=== PATIENT | female | born 1960 | race African-American/Black ===

== ENCOUNTER 2020-02-24 06:56 | Emergency (ER) | payer OTHER ==
--- NOTE | 2020-02-24 07:13 | PDOC ---
History of Present Illness - General Chief Complaint: Chest Pain Stated Complaint: CHEST PAIN - History of Present Illness Initial Comments: 02/24/20 07:23 59 F with h/o HTN presenting to ED with 1 month of intermittent chest pain. Pt describes midsternal pain that is worse with certain positions or movements. Denies any SOB. Denies any exertional or pleuritic component to the pain. Denies any new leg swelling. Denies F/C/cough. No recent travel/immobilization. Past History - Medical History Allergies/Adverse Reactions: Allergies Allergy/AdvReac Type Severity Reaction Status Date / Time No Known Allergies Allergy Verified 02/24/20 07:04 Home Medications: Ambulatory Orders Amlodipine Besylate 10 mg PO DAILY 11/07/15 Losartan Potassium 50 mg PO DAILY 11/07/15 Anemia: No (LONG AGO) Asthma: No Cancer: No Cardiac Disorders: No CVA: No COPD: No CHF: No Dementia: No Diabetes: No GI Disorders: No Disorders: No HTN: Yes Hypercholesterolemia: No Liver Disease: No Seizures: No Thyroid Disease: No - Surgical History Abdominal Surgery: No Appendectomy: No Cardiac Surgery: No Cholecystectomy: No Lung Surgery: No Neurologic Surgery: No Orthopedic Surgery: Yes (KNEE ARTHROSCOPY) - Psycho-Social/Smoking History Smoking Status: No Smoking History: Never smoked Have you smoked in the past 12 months: No Number of Cigarettes Smoked Daily: 0 Review of Systems - Review of Systems Comments:: 02/24/20 07:25 "GENERAL/CONSTITUTIONAL: No fever or chills. No weakness. HEAD, EYES, EARS, NOSE AND THROAT: No change in vision. No ear pain or discharge. No sore throat. CARDIOVASCULAR: + chest pain, no shortness of breath, no loss of consciousness RESPIRATORY: No cough, wheezing, or hemoptysis. GASTROINTESTINAL: No nausea, vomiting, diarrhea or constipation. GENITOURINARY: No dysuria, frequency, or change in urination. MUSCULOSKELETAL: No joint or muscle swelling or pain. No neck or back pain. SKIN: No rash NEUROLOGIC: No vertigo, no change in strength/sensation. ENDOCRINE: No increased thirst. No abnormal weight change. HEMATOLOGIC/LYMPHATIC: No anemia, easy bleeding, or history of blood clots. ALLERGIC/IMMUNOLOGIC: No hives or skin allergy. *Physical Exam - Physical Exam 02/24/20 07:25 "GENERAL: Awake, alert, and fully oriented, in no acute distress. HEAD: No signs of trauma EYES: PERRLA, EOMI, sclera anicteric, conjunctiva clear ENT: Auricles normal inspection, hearing grossly normal, nares patent, oroph arynx clear without exudates. Moist mucosa NECK: Nontender, no stepoffs, Normal ROM, supple, no lymphadenopathy, JVD, or masses LUNGS: Breath sounds equal, clear to auscultation bilaterally. No wheezes, and no crackles HEART: Regular rate and rhythm, normal S1 and S2, no murmurs, rubs or gallops ABDOMEN: Soft, nontender, normoactive bowel sounds. No guarding, no rebound. No masses EXTREMITIES: Normal range of motion, no edema. No clubbing or cyanosis. No cords, erythema, or tenderness NEUROLOGICAL: Cranial nerves II through XII intact. 5/5 strength and sensation in all extremities, Normal speech, normal gait, normal cerebellar function SKIN: Warm, Dry, normal turgor, no rashes or lesions noted. Heart Score/ECG Review - History History: Slightly suspicious - Electrocardiogram EKG: Non specific repolarization disturbance - Age Age: 45-65 - Risk Factors Risk Factors Heart Score: Yes Hx Hypertension Based on the list above the patient has:: 1-2 risk factors - Troponin Troponin: </= normal limit - Score Heart Score - Total: 3 - ECG Impressions Comment:: 02/24/20 07:25 NSR, no ИВАН/STDs, T wave flattening in V1-V2, intervals wnl, rate 61 ED Treatment Course - LABORATORY CBC & Chemistry Diagram: 02/24/20 08:00 02/24/20 08:00 Medical Decision Making - Medical Decision Making 02/24/20 07:26 59 F with atypical chest pain. Suspect msk in etiology as it is worse with positional changes. EKG with mild T wave flattening in V1-V2. Previous EKG in 2016 had TWI in these leads. No evidence of pericarditis. Pt with no PE risk factors, normal vitals. - Labs, trop - CXR 02/24/20 08:46 Labs wnl CXR clear Pt is well appearing, with normal vitals. Clinically stable for DC at this time. I discussed the physical exam findings, ancillary test results and final diagnoses with the patient. I answered all of the patient's questions. The shelley ent was satisfied with the care received and felt comfortable with the discharge plan and treatment plan. The patient agrees to follow up with the primary care physician within 24-72 hours. Please note this patient was evaluated during the COVID-19 crisis with the presidential [place] Act Declaration and the [place] governor executive order number [id number]. He/she was evaluated and clinical decisions were made relative to healthcare system resources as well as clinical picture during a pandemic crisis situation. Discharge - Discharge Information Problems reviewed: Yes Clinical Impression/Diagnosis: Chest pain Disposition: HOME - Follow up/Referral - Patient Discharge Instructions Patient Printed Discharge Instructions: DI for Chest Pain Additional Instructions: Your X ray and bloodwork were normal today. However, this does not rule out all serious medical conditions. Call your primary doctor to discuss your visit today. Follow up with your sound assistant for your stress test and echocardiogram. If you experience worsening pain, shortness of breath, or any other concerning symptoms, return to the ER immediately. - Post Discharge Activity
[2020-02-24 07:14] VITALS: BP 157/89; PULSE 75; TEMP 98
[2020-02-24 08:16] LABS: BASO % 1.1 % (0-2.0); EOS % 3.2 % (0-4.5); HEMATOCRIT 37.6 % (32.4-45.2); HEMOGLOBIN 12.2 GM/dl (10.7-15.3); LYMPH % 44.5 % (8-40); MCH 23.2 pg (25.7-33.7); MCHC 32.5 g/dl (32.0-36.0); MEAN CELL VOLUME 71.5 fl (80-96); MEAN PLT VOLUME 8.8 fl (7.5-11.1); MONO % 7.2 % (3.8-10.2); PLATELET COUNT 285 K/MM3 (134-434); RBC 5.26 M/mm3 (3.60-5.2); WHITE BLOOD COUNT 4.4 K/mm3 (4.0-10.8)
[2020-02-24 08:20] LABS: ADD RBC MORPHOLOGY YES
[2020-02-24 08:29] LABS: ALBUMIN 4.6 g/dl (3.4-5.0); BILIRUBIN,TOTAL 0.6 mg/dl (0.2-1); CALCIUM 9.6 mg/dl (8.5-10); CREATININE 0.9 mg/dl (0.55-1.3); POTASSIUM 4.1 mmol/L (3.5-5.1); TOT PROT 8.6 g/dl (6.4-8.2)
--- NOTE | 2020-02-24 09:30 | EKG ---
Test Reason : Blood Pressure : / mmHG Vent. Rate : 061 BPM Atrial Rate : 061 BPM P-R Int : 168 ms QRS Dur : 082 ms QT Int : 434 ms P-R-T Axes : 063 036 062 degrees QTc Int : 436 ms NORMAL SINUS RHYTHM NONSPECIFIC T WAVE ABNORMALITY ABNORMAL ECG NO PREVIOUS ECGS AVAILABLE Confirmed by MD DENYS, BARRETT ([id number]) on 02/24/2020 9:29:57 AM Referred By: EMILY ENGLISH Confirmed By:BARRETT MCFARLANE MD
== END 2020-02-24 09:00 | disposition home or self-care (01) ==
LOC: FER 06:56
DX: R07.9 Chest pain, unspecified (principal)
CPT/HCPCS: 36415; 71046-TC-FY; 80053; 82550; 82553; 84484; 85025; 93005; 99285-25

== ENCOUNTER 2020-07-25 12:59 | Emergency (ER) | payer OTHER | END 2020-07-25 14:20 | disposition home or self-care (01) | LOC: JVIRT 12:59 | DX: U07.1 COVID-19 (principal) | CPT/HCPCS: C9803; G2012-GT; U0003 ==

== ENCOUNTER 2022-05-08 08:27 | Emergency (ER) | payer OTHER ==
[2022-05-08 08:42] VITALS: BP 158/80; PULSE 85; RESP 20; TEMP 98.6; BMI 30.5
[2022-05-08] MEDS ORDERED: IBUPROFEN 400 MG TABLET (FP) PO ONE ×2 (09:18→09:21)
[2022-05-08] MEDS ORDERED: LIDOCAINE 5% TOPICAL PATCH TP ONE (09:18)
[2022-05-08] MEDS ORDERED: LIDOCAINE 5% TOPICAL PATCH ONE (09:21)
[2022-05-08] MEDS ORDERED: LIDOCAINE PATCH REMOVAL MC SCH (22:00)
== END 2022-05-08 10:14 | disposition home or self-care (01) ==
LOC: FER 08:27
DX: M54.12 Radiculopathy, cervical region (principal)
CPT/HCPCS: 72050-TC-FY; 99284-25

== ENCOUNTER 2023-09-25 16:25 | Emergency (ER) | payer OTHER ==
[2023-09-25 16:36] VITALS: BP 126/85; PULSE 89; RESP 16; TEMP 98.4; BMI 30.6
[2023-09-25] MEDS ORDERED: ACETAMINOPHEN 325 MG TABLET (FP) ONE (16:59)
[2023-09-25] MEDS: ACETAMINOPHEN 500 MG TABLET (FP) PO ONE (17:01)
[2023-09-25] MEDS ORDERED: IBUPROFEN 600 MG TABLET (FP) PO ONE (17:03)
[2023-09-25] MEDS: IBUPROFEN 600 MG TABLET (FP) PO ONE (17:05)
== END 2023-09-25 18:48 | disposition home or self-care (01) ==
LOC: FER 16:25
DX: R51.9 Headache, unspecified (principal); B34.9 Viral infection, unspecified; R05.9 Cough, unspecified; R50.9 Fever, unspecified; R42 Dizziness and giddiness; Z20.822 Contact with and (suspected) exposure to COVID-19
CPT/HCPCS: 0241U-QW; 99283-25